=== PATIENT | male | born 1960 | race Caucasian/White ===

== ENCOUNTER → 2021-10-01 | Outpatient (CLI) | payer BC ==
[~2021-10-01] MED LIST: ASPIRIN 325MG325 MG PO; FLECAINIDE ACE100 MG PO; LABETALOL HCL200 MG PO; LOPRESSOR 25 MG25 MG PO; MULTI-VITAMIN1 EACH PO; NITROSTAT 0.4100 TAB SL; VALSARTAN-HCTZ1 EAC3 PO; XANAX0.5 MG PO
== END ==
LOC: KOH-I 09:30
DX: R06.02 Shortness of breath (principal)
CPT/HCPCS: 71045

== ENCOUNTER 2021-10-04 01:53 | Inpatient (IN) | payer BC ==
[~2021-10-04] VITALS: Ht 182.9 cm; Wt 127.0 kg
[~2021-10-04 01:53] MED LIST changes: -ASPIRIN 325MG325 MG PO; -FLECAINIDE ACE100 MG PO; -LOPRESSOR 25 MG25 MG PO; -MULTI-VITAMIN1 EACH PO; -NITROSTAT 0.4100 TAB SL; -VALSARTAN-HCTZ1 EAC3 PO; -XANAX0.5 MG PO
[2021-10-04 02:27] LABS: HEMOGLOBIN 17.8 gm/dl (14.0-17.5); RED BLOOD COUNT 5.59 M/UL (4.20-5.50); WHITE BLOOD COUNT 9.6 K/UL (4.5-11.0)
[2021-10-04] MEDS ORDERED: VALSARTAN-HCTZ1 EAC3 PO (05:41)
[2021-10-04] MEDS ORDERED: MULTI-VITAMIN1 EACH PO (05:42)
[2021-10-04] MEDS ORDERED: ASPIRIN 325MG325 MG PO (05:43)
[2021-10-04] MEDS ORDERED: NITROSTAT 0.4100 TAB SL (05:47)
[2021-10-04] MEDS ORDERED: XANAX0.5 MG PO (10:03)
[2021-10-05 01:44] LABS: HEMOGLOBIN 14.9 gm/dl (14.0-17.5); RED BLOOD COUNT 4.88 M/UL (4.20-5.50); WHITE BLOOD COUNT 6.2 K/UL (4.5-11.0)
[2021-10-05] MEDS ORDERED: LOPRESSOR 25 MG25 MG PO (12:21)
[2021-10-05] MEDS ORDERED: FLECAINIDE ACE100 MG PO (12:21)
== END 2021-10-05 13:46 | disposition home or self-care (01) | DRG 309 ==
LOC: ER1 01:53 → CDU 04:25 → PROG CARE 04:25
PROVIDERS: Family Medicine; Internal Medicine; ADMIT Internal Medicine
PROC: B24BZZZ Ultrasonography of Heart with Aorta (ICD-10-PCS; principal; 2021-10-04)
DX: I48.91 Unspecified atrial fibrillation (principal); N17.9 Acute kidney failure, unspecified; I20.9 Angina pectoris, unspecified; E78.5 Hyperlipidemia, unspecified; Z20.822 Contact with and (suspected) exposure to COVID-19; E87.6 Hypokalemia; E66.9 Obesity, unspecified; I12.9 Hypertensive chronic kidney disease with stage 1 through stage 4 chronic kidney disease, or unspecified chronic kidney disease; Z96.698 Presence of other orthopedic joint implants; I08.1 Rheumatic disorders of both mitral and tricuspid valves; N18.9 Chronic kidney disease, unspecified; K42.9 Umbilical hernia without obstruction or gangrene; G47.33 Obstructive sleep apnea (adult) (pediatric); F41.9 Anxiety disorder, unspecified; Z79.82 Long term (current) use of aspirin; Z90.49 Acquired absence of other specified parts of digestive tract; Z88.0 Allergy status to penicillin; Z91.041 Radiographic dye allergy status; Z82.49 Family history of ischemic heart disease and other diseases of the circulatory system; Z87.81 Personal history of (healed) traumatic fracture; Z68.38 Body mass index [BMI] 38.0-38.9, adult
CPT/HCPCS: ECHO; 36415; 71045; 78452; 80048; 80053; 82550; 82553; 83735; 83880; 84132; 84484; 85025; 85027; 85379; 93005; 93306; 96374; 99285; A9502; J1650; J3480; U0002